=== PATIENT | female | born 1960 | race Caucasian/White ===

== ENCOUNTER 2018-03-08 15:47 | Emergency (ER) | payer OTHER ==
[~2018-03-08] VITALS: Ht 172.7 cm; Wt 123.9 kg
[~2018-03-08 15:47] MED LIST: AMBIEN10 MG PO; AMIODARONE HCL200 MG; BUMETANIDE1 MG PO; BUMEX1 MG PO; CARRASYN HYDROG85 GM TP; CIPRO500 MG PO; COUMADIN1 MG PO; COUMADIN2 MG PO; COUMADIN3 MG PO; COUMADIN4 MG PO; CYANOCOBALAMIN 1,000; CYCLOBENZAPRINE10 MG PO; DAILY VALUE1 EACH PO; DILTIAZEM 24HR120 MG PO; DILTIAZEM 24HR300 MG PO; ENDOCET 5-3251 EACH PO; FERREX 150 FOR1 EACH PO; FLAGYL500 MG PO; FUROSEMIDE40 MG; FUROSEMIDE40 MG PO; LASIX40 MG PO; LOPRESSOR100 M1 PO; METOCLOPRAMIDE 10 MG; METOPROLOL SUC100 MG; METOPROLOL SUCC25 MG PO; METOPROLOL SUCC50 MG PO; OMEGA-31000 M1 PO; PANTOPRAZOLE SO40 MG PO; PERCOCET 5/31 TABLET PO; PROTONIX40 MG PO; RYBIX ODT50 MG PO; SKELAXIN800 MG PO; SPIRONOLACTONE25 MG PO; TOPROL XL100 MG PO; TOPROL XL25 MG PO; TRAMADOL-ACETA1 EACH PO; TYLENOL WITH C1 EACH PO; VERAPAMIL 240 MG; WARFARIN SODIU2.5 MG; WARFARIN SODIUM2 MG PO; ZESTRIL2.5 MG PO; ZOFRAN4 MG PO
[2018-03-08] MEDS ORDERED: NORCO 5/3251 TABLET PO (17:21)
[2018-03-08 17:33] VITALS: BP 97/67
== END 2018-03-08 17:37 | disposition home or self-care (01) ==
LOC: RME 15:47 → EME 15:47 → RME 17:37
DX: S80.11XA Contusion of right lower leg, initial encounter (principal); D68.9 Coagulation defect, unspecified; W19.XXXA Unspecified fall, initial encounter; Y93.K1 Activity, walking an animal; K21.9 Gastro-esophageal reflux disease without esophagitis; I50.9 Heart failure, unspecified; K50.90 Crohn's disease, unspecified, without complications; Z79.01 Long term (current) use of anticoagulants; Z87.891 Personal history of nicotine dependence; Z86.79 Personal history of other diseases of the circulatory system; Z87.19 Personal history of other diseases of the digestive system; Z98.84 Bariatric surgery status; Z90.49 Acquired absence of other specified parts of digestive tract; Z90.721 Acquired absence of ovaries, unilateral; Z91.040 Latex allergy status; Z88.6 Allergy status to analgesic agent; J30.2 Other seasonal allergic rhinitis
CPT/HCPCS: 73590; 99281; 99284

== ENCOUNTER 2018-04-18 17:42 | Emergency (ER) | payer OTHER ==
[~2018-04-18] VITALS: Ht 172.7 cm; Wt 125.0 kg
[~2018-04-18 17:42] MED LIST changes: +NORCO 5/3251 TABLET PO
[2018-04-18] MEDS ORDERED: PERCOCET 5/31 TABLET PO (20:02)
[2018-04-18 21:29] VITALS: BP 130/69
== END 2018-04-18 21:30 | disposition home or self-care (01) ==
LOC: EME 17:42
DX: S83.91XA Sprain of unspecified site of right knee, initial encounter (principal); W18.30XA Fall on same level, unspecified, initial encounter; K21.9 Gastro-esophageal reflux disease without esophagitis; K50.90 Crohn's disease, unspecified, without complications; Z87.891 Personal history of nicotine dependence; Z90.49 Acquired absence of other specified parts of digestive tract; Z98.84 Bariatric surgery status; Z79.01 Long term (current) use of anticoagulants; Z91.040 Latex allergy status; Z88.8 Allergy status to other drugs, medicaments and biological substances
CPT/HCPCS: 73552; 73564; 73590; 99281; 99284